=== PATIENT | female | born 1990 | race Caucasian/White ===

== ENCOUNTER 2020-05-03 09:12 | Emergency (ER) | payer OTHER ==
[2020-05-03 10:27] LABS: BASOPHIL 0.6 % (0-2); EOSINOPHIL 0.5 % (0-5); HCT 49.2 % (37.0-47.0); HGB 16.3 g/dl (12.5-16.0); LYMPHOCYTE 7.5 % (15-48); MCH 28.5 pg (25.0-31.0); MCHC 33.1 g/dL (32.0-36.0); MONOCYTE 5.8 % (0-12); MPV 10.8 fL (6.0-9.5); NRBC 0; PLT 343 K/uL (150-400); RBC 5.72 M/uL (4.20-5.40); RDW 12.3 % (11.5-14.0); WBC 15.5 K/uL (4.0-10.5)
[2020-05-03 11:02] LABS: BILIRUBIN NEGATIVE (NEGATIVE); BLOOD NEGATIVE Ery/uL (NEGATIVE); CLARITY CLEAR (CLEAR); COLOR YELLOW (YELLOW); GLUCOSE (U) NORMAL (NORMAL); LEUKOCYTES NEGATIVE Leu/uL (NEGATIVE); NITRITE NEGATIVE (NEGATIVE); PROTEIN NEGATIVE (NEGATIVE); SPECIFIC GRAVITY 1.025 (1.001-1.030); UROBILINOGEN 0.2 mg/dL (0.2-1.0); pH 5.5 (5.0-9.0)
[2020-05-03 11:13] LABS: BILIRUBIN - TOTAL 0.5 mg/dL (0.2-1.0); BUN/CREAT RATIO (CALC) 12.9 RATIO; CREATININE 0.7 mg/dL (0.51-0.95); GLOBULIN (CALCULATION) 3.9 g/dL; POTASSIUM 4.6 mmol/L (3.5-5.1); TOTAL PROTEIN 7.9 g/dL (6.4-8.2)
[2020-05-03] MEDS ORDERED: CARAFATE1 GM PO (12:58)
[2020-05-03] MEDS ORDERED: PEPCID AC20 MG PO (12:58)
[2020-05-03] MEDS ORDERED: PROTONIX 40MG T40 MG PO (12:58)
== END 2020-05-03 13:15 | disposition home or self-care (01) ==
LOC: FER 09:12
PROVIDERS: Emergency Medicine
DX: K29.70 Gastritis, unspecified, without bleeding (principal); R94.5 Abnormal results of liver function studies; Z98.890 Other specified postprocedural states
CPT/HCPCS: 36415; 80053; 81003; 83690; 85025; 87339; C9113; J2405; Q9967

== ENCOUNTER 2021-08-02 23:14 | Emergency (ER) | payer OTHER ==
[~2021-08-02 23:14] MED LIST: CARAFATE1 GM PO; PEPCID AC20 MG PO; PROTONIX 40MG T40 MG PO
[2021-08-03 01:19] LABS: BASOPHIL 1.1 % (0-2); EOSINOPHIL 3.1 % (0-5); HCT 41.9 % (37.0-47.0); HGB 14.4 g/dl (12.5-16.0); LYMPHOCYTE 34.7 % (15-48); MCHC 34.4 g/dL (32.0-36.0); MCV 84.5 fL (78.0-100.0); MPV 10.4 fL (6.0-9.5); NEUTROPHIL 53.9 % (41-80); NRBC 0; PLT 268 K/uL (150-400); RBC 4.96 M/uL (4.20-5.40); RDW 12.2 % (11.5-14.0); WBC 9.3 K/uL (4.0-10.5)
[2021-08-03 01:27] LABS: BILIRUBIN NEGATIVE (NEGATIVE); BLOOD NEGATIVE Ery/uL (NEGATIVE); CLARITY CLEAR (CLEAR); COLOR YELLOW (YELLOW); GLUCOSE (U) NORMAL (NORMAL); LEUKOCYTES NEGATIVE Leu/uL (NEGATIVE); NITRITE NEGATIVE (NEGATIVE); PROTEIN NEGATIVE (NEGATIVE); SPECIFIC GRAVITY 1.015 (1.001-1.030)
[2021-08-03 01:48] LABS: ALBUMIN 3.8 g/dL (3.4-5.0); BILIRUBIN - TOTAL 0.3 mg/dL (0.2-1.0); BUN/CREAT RATIO (CALC) 11.1 RATIO; CREATININE 0.63 mg/dL (0.51-0.95); GLOBULIN (CALCULATION) 3.6 g/dL; POTASSIUM 3.7 mmol/L (3.5-5.1); TOTAL PROTEIN 7.4 g/dL (6.4-8.2)
== END 2021-08-03 02:05 | disposition left against medical advice (07) ==
LOC: FER 23:14
PROVIDERS: Internal Medicine
DX: R10.9 Unspecified abdominal pain (principal); Z53.29 Procedure and treatment not carried out because of patient's decision for other reasons
CPT/HCPCS: 36415; 80053; 81003; 83690; 83735; 84145; 85025; 99281